=== PATIENT | male | born 1985 | race Caucasian/White ===

== ENCOUNTER 2018-07-16 08:23 | Day surgery (SDC) | payer OTHER ==
--- NOTE | 2018-07-16 07:44 | HP ---
DATE OF SURGERY: 07/16/2018 HISTORY OF PRESENT ILLNESS: The patient is a 33 year-old who has some history of some rectal bleeding in the past. He had a CT scan had some thickened bowel question of colitis. He needs colonoscopy to evaluate for colitis associated, inflammatory bowel disease or other etiology. CT scan had some prominent lymph node nonspecific aortocaval area, descending sigmoid thickening question colitis. He is in need of colonoscopy as well as possible internal hemorrhoid banding pending operative findings if indicated. If colonoscopy is unremarkable may need endoscopic ultrasound regarding nonspecific nodes. PAST MEDICAL HISTORY: Diabetes, hypothyroidism, hypercholesterolemia, hypertension. PAST SURGICAL HISTORY: Tonsillectomy. Left and right lens implants for cataracts in the past. MEDICATIONS: He takes some blood pressure medication, takes insulin, thyroid medication levothyroxine, cholesterol medications as well as Metformin. Blood pressure medication lisinopril. He also takes Atorvastatin. ALLERGIES: NKDA. FAMILY HISTORY: Heart disease, cancer, diabetes, hypertension. SOCIAL HISTORY: One pack per day smoker, denies or alcohol abuse. REVIEW OF SYSTEMS: Twelve systems reviewed pertinent for as noted above. PHYSICAL EXAMINATION: He is 6'4" and 303 pounds. GENERAL: No acute distress. HEENT: Sclerae nonicteric. NECK: No JVD. CHEST: Equal excursion, nonlabored breathing. CVS: Regular rate and rhythm. ABDOMEN: Soft. No peritoneal signs. EXTREMITIES: No significant edema. NEURO: Alert, oriented, moving extremities symmetrically. No gross motor deficits noted. RECTAL: Deferred timed to endoscopy exam. LAB DATA AND TESTS: CT scan descending, sigmoid superficial wall thickening question incomplete distention versus colitis, fatty infiltration of the liver or some fat in his inguinal canal. Otherwise nonspecific prominent aortocaval node around renal vessel area. IMPRESSION: History of some rectal bleeding. He has had some thickening of his colon, descending and sigmoid on CT scan as well as nonspecific node. I feel he will benefit from colonoscopy to evaluate for colitis, inflammatory bowel disease versus neoplasia or other issue. Additionally as he had rectal bleeding he is interested in considering internal hemorrhoid banding if indicated. If his C-scope is negative may need to consider referral for CT scan for endoscopic ultrasound to rule out other causes of nonspecific node versus follow up CT scan in three months. Risk of colonoscopy and internal hemorrhoid banding, general risk of bleeding or infection, small risk of bowel injury or perforation, risk of missed or nondiagnosis or incomplete exam possibly requiring barium enema, other studies or procedures, general risk of anesthesia or sedation, risk of bowel prep, postoperative risk of nausea or cramping, possibility of progression of hemorrhoidal disease possibly requiring other treatments down the road, general risk of bleeding or infection regarding the banding, risks of aches, pains or cramping but not limited to. He understands and agrees to the planned procedure and will proceed with outpatient colonoscopy with possible internal hemorrhoid banding.
[~2018-07-16 08:23] MED LIST: Lactated Ringers 1,000 ML IV ONE; Lactated Ringers 1,000 ML IV SCH
[2018-07-16] MEDS ORDERED: DIPRIVAN 200 MG/20 ML IV ONE (08:24)
[2018-07-16] MEDS ORDERED: Lactated Ringers 1,000 ML IV ONE (11:32)
[2018-07-16 12:35] VITALS: BP 142/89; PULSE 72; O2SAT 97
--- NOTE | 2018-07-16 15:43 | OP ---
SURGERY DATE/TIME: 07/16/2018 1108 PREOPERATIVE DIAGNOSIS: History of some rectal bleeding, history of some internal and external hemorrhoids, history of thickened colon on CT scan, history of nonspecific aortocaval lymph nodes. Need for colonoscopy. POSTOPERATIVE DIAGNOSES: History of some rectal bleeding, history of some internal and external hemorrhoids, history of thickened colon on CT scan, history of nonspecific aortocaval lymph nodes. Need for colonoscopy. PROCEDURES: 1) Colonoscopy to terminal ileum. 2) Retrograde ileoscopy. 3) Random cold biopsy of ileum to evaluate for microscopic ileitis. 4) Random cold biopsy right colon to evaluate for microscopic colitis. 5) Multiple cold biopsies of patchy areas of thickened proximal sigmoid colon inflammation. 6) Internal hemorrhoid banding x3 columns. SURGEON: Dr. Vish Hylton. ANESTHESIA: MAC. ESTIMATED BLOOD LOSS: Minimal. INDICATIONS: As noted above. Risks and benefits explained in detail but not limited to and consent obtained. DESCRIPTION OF PROCEDURE AND FINDINGS: The patient is taken to the operating room. MAC anesthesia introduced. After official time out and no disagreement with planned procedure, digital rectal exam did not reveal any rectal masses. He did have internal and external hemorrhoids. Video colonoscope inserted and passed up through the colon that was limited with stool semisolid and liquidy stool throughout the colon making it an overall adequate prep. It took quite some time to get through this inflammation on the left colon. There was no obvious mass per se or large polyp but thickened areas of fluffy, inflamed mucosa. Cold biopsy taken here for evaluation. The scope was slowly and carefully passed around the transverse colon, descending colon, ascending colon and cecum up through the terminal ileum. The terminal ileum was grossly unremarkable. No massive cobblestoning. There was just a slight bit of inflammation. Cold biopsy taken to evaluate for microscopic ileitis. Good hemostasis noted. Scope slowly and carefully withdrawn. Again, the prep overall was adequate. No large lesions or masses. It was limited for very tiny lesions given the he had stool. The scope is slowly and carefully withdrawn. There were no signs of any large polyps or masses. He had some mild inflammation in more proximal colon. Random cold biopsies taken to evaluate for microscopic colitis. The scope was carefully pulled back around to the left colon where he had these thick, inflamed folds of mucosa. Multiple cold biopsies were taken, this did not look like a particular mass but did look like inflammation. Multiple cold biopsies. Good hemostasis noted. Otherwise he had internal and external hemorrhoids in the rectum. The scope is withdrawn. Under the OR lights under MAC anesthesia, the half-rahman retractor carefully inserted. It was felt he had grade II to III internal and external hemorrhoids warranted attempt at internal hemorrhoid banding. The band initially misfired on the left lateral but repositioned and suction properly grasping the top edge of the hemorrhoid, suction band carefully fired. Good tuft of tissue noted. This was then again repeated in the right posterior position and again in the right anterior position. Good tuft of tissue in each location the top edge of the hemorrhoid hopefully clamping arterioles. The patient tolerated the procedure well. There were no immediate complications. Findings discussed with the family out in the waiting area. He was transferred to the recovery room in stable condition. I will also order inflammatory bowel disease study GI for further evaluation.
[2018-07-19 19:43] LABS: Anti-CBir1 IgG 9.9 EU/mL (< 35.4 EU/mL); CRP 8.8 mg/L (< 13.4 mg/L); IBD Spec.DNAse Sensitivity Not Detected (Not Detected); IBD Spec.pANCA Perinuclear Pat Not Detected (Not Detected); ICAM-1 0.65 ug/mL (< 0.52 ug/mL); VCAM-1 0.66 ug/mL (< 0.75 ug/mL); VEGF 100 pg/mL (< 393 pg/mL)
[2018-07-19 21:19] LABS: ATG 16L 1 SNP SEE NOTES (SEE NOTES); ECM1 SNP SEE NOTES (SEE NOTES); NKX2-3 SNP SEE NOTES (SEE NOTES); SAA 8.4 mg/L (< 22.9 mg/L); STAT3 SNP SEE NOTES (SEE NOTES)
== END 2018-07-16 12:47 | disposition home or self-care (01) ==
LOC: SDC 08:23
PROVIDERS: ATTEND Surgery
DX: K52.9 Noninfective gastroenteritis and colitis, unspecified (principal); K64.8 Other hemorrhoids; K64.4 Residual hemorrhoidal skin tags; Z87.19 Personal history of other diseases of the digestive system
CPT/HCPCS: 36415; 45398; 81479; 82397; 83520; 86140; 88305; 88346; J2704